=== PATIENT | female | born 1985 | race Asian ===

== ENCOUNTER 2016-09-20 12:48 | Emergency (ER) | payer OTHER ==
[~2016-09-20] VITALS: Wt 66.0 kg
[~2016-09-20 12:48] MED LIST: ACET500C5 PO; AZIT250T94 PO; IBUP400T22 PO; NP.1OP15 BOTH EYES; UDROBDM PO
--- NOTE | 2016-09-20 13:19 | ERD ---
ER Documentation Chief Complaint Date/Time DATE: 09/20/16 TIME: 13:18 Chief Complaint VAG BLEEDING X1 MONTH, NO PAIN REPORTED HPI 28-year-old female history of anemia, currently has had ParaGard for 8 months comes to emergency room with vaginal bleeding on and off for 6 weeks. She states that it varies from brown color to bright red blood, usually the bleeding has been on and off for about 2-3 days. Previously patient had the same IUD and had it for 5 years and was replaced 8 months ago. When it is brown colored blood she reports 1-2 pads per day, with bright red blood she reports up to 6 times a day. She reports a little bit of pelvic pressure, otherwise she does not report any severe pain, dizziness, chest pain. No reported fever or chills with this. ROS All systems reviewed and are negative except as per history of present illness. Medications Home Meds Active Scripts Ferrous Sulfate* (Ferrous Sulfate*) 325 Mg Tabec, 325 MG PO BID, #90 TAB Prov:JAVI TAY PA-C 09/20/16 Medroxyprogesterone Acetate* (Provera*) 2.5 Mg Tablet, 2.5 MG PO DAILY for 5 Days, TAB Prov:JAVI TAY PA-C 09/20/16 Naphazoline Hcl* (Naphcon*) 0.012% Ophth - 15 ML Drops, 2 DROP BOTH EYES QID for 7 Days, EA Prov:MARLEEN RAPP 12/04/15 Azithromycin* (Zithromax*) 250 Mg Tablet, 250 MG PO .ZPACK DIRECTED, #6 TAB 0 Refills TAKE 500 MG (2 TABS) THE FIRST DAY THEN 250 MG (1 TAB) DAYS 2-5 Prov:YOHANA ROSE PA-C 07/18/15 Ibuprofen* (Motrin*) 400 Mg Tab, 400 MG PO Q6, #30 TAB 0 Refills Prov:YOHANA ROSE PA-C 07/18/15 Acetaminophen* (Tylophen*) 500 Mg Capsule, 1 CAP PO Q6H Y for PAIN AND OR ELEVATED TEMP, #30 CAP 0 Refills Prov:YOHANA ROSE PA-C 07/18/15 Guaifenesin-Dextromethorphan* (Robitussin* DM) 100MG/10MG/5ML Syrup, 5 ML PO Q6H Y for COUGH, #120 ML 0 Refills Prov:YOHANA ROSE PA-C 07/18/15 Allergies Allergies: Coded Allergies: No Known Allergy (Unverified , 01/31/14) PMhx/Soc History of Surgery: Yes ( X2 ) Anesthesia Reaction: No Hx Neurological Disorder: No Hx Respiratory Disorders: No Hx Cardiac Disorders: No Hx Psychiatric Problems: No Hx Miscellaneous Medical Probl: Yes (Anemia.) Hx Alcohol Use: No Hx Substance Use: No Hx Tobacco Use: No Smoking Status: Never smoker Physical Exam Vitals Vital Signs Date Time Temp Pulse Resp B/P Pulse Ox O2 Delivery O2 Flow Rate FiO2 09/20/16 12:50 97.9 81 17 121/66 100 Physical Exam General: Well-developed, well-nourished. The patient appears in no acute distress. HEENT: Head is normocephalic, atraumatic. No scleral icterus. Neck: Supple. Nontender. Lungs: Clear to auscultation. Normal air movement. Heart: Regular rate and rhythm. S1 and S2 are normal. No murmurs, gallops, or rubs. Abdomen: Nondistended. Extremities: No clubbing or cyanosis. Moving extremities x 4. No weakness. Neurologic: Alert and oriented 3. No focal deficits. Normal speech and gait. Skin: Normal turgor. No rash or lesions. Result Diagram: 09/20/16 1345 Results 24 hrs Laboratory Tests Test 09/20/16 13:45 White Blood Count 6.810^3/ul Red Blood Count 4.6210^6/ul Hemoglobin 10.5g/dl Hematocrit 33.2% Mean Corpuscular Volume 71.9fl Mean Corpuscular Hemoglobin 22.7pg Mean Corpuscular Hemoglobin Concent 31.6g/dl Red Cell Distribution Width 15.8% Platelet Count 85205^3/UL Mean Platelet Volume 12.3fl Neutrophils % 60.6% Lymphocytes % 28.8% Monocytes % 5.3% Eosinophils % 4.6% Basophils % 0.6% Nucleated Red Blood Cells % 0.0/100WBC Neutrophils # 4.110^3/ul Lymphocytes # 2.010^3/ul Monocytes # 0.410^3/ul Eosinophils # 0.310^3/ul Basophils # 0.010^3/ul Nucleated Red Blood Cells # 0.010^3/ul PROCEDURE: US Pelvis. CLINICAL INDICATION: Metrorrhagia. TECHNIQUE: The pelvis was evaluated with transabdominal and transvaginal sonography in the axial and sagittal planes. COMPARISON: No prior study is available for comparison. FINDINGS: Uterus: 7.6 x 4.1 x 4.9 cm. Endometrium: 10.0 mm. An IUD is present in satisfactory position within the endometrial canal. Right ovary: 2.9 x 2.1 x 2.2 cm. Left ovary: 3.0 x 1.9 x 2.0 cm. Uterine masses: The uterus is heterogeneous and there is a fibroid measuring 1.2 x 1.5 x 1.3 cm anteriorly at the fundus. This may be pedunculated. Ovarian masses: None. Color Doppler and pulsed Doppler sonography demonstrate normal flow to the ovaries. Other pelvic masses: None. Free fluid: None. IMPRESSION: 1. IUD in satisfactory position. 2. Heterogeneous uterus. 3. Anterior fundal fibroid measuring 1.5 cm in maximal dimension which may be pedunculated. 4. Otherwise unremarkable study. RPTAT: QQ .Jag Deshpande MD, MD Date Time Electronically viewed and signed by .Jag Deshpande MD, on 09/20/2016 15:24 .R/ Procedures/MDM 31 yo female comes in with vaginal bleeding, patient has a ParaGard IUD in place also a pelvic ultrasound shows an a fibroid. Patient's intermittent vaginal bleeding may be due to the IUD, she had a CBC done that shows anemia, however no transfusion warranted at this time. She was given all results were copies, she will be given a short course of Provera, as well as iron for his symptoms. She was asked to follow-up with a instructor nurse within the next week for recheck to ensure her symptoms improved. At this time she remains hemodynamically stable, pelvic ultrasound does not show any evidence of gynecologic emergency, including ovarian torsion, or other masses. She feels comfortable with this plan and will be discharged home. Departure Diagnosis: Primary Impression: Vaginal bleeding Additional Impressions: Uterine fibroid Anemia Condition: Good JAVI TAY PA-C September 20, 2016 13:19
[2016-09-20 13:56] LABS: ADD SCAN DIFF NO
[2016-09-20 13:59] LABS: BASOPHILS % 0.6 % (0.0-2.0); EOSINOPHILS # 0.3 10^3/ul (0.0-0.5); EOSINOPHILS % 4.6 % (0.0-7.0); HEMATOCRIT 33.2 % (37.0-47.0); HEMOGLOBIN 10.5 g/dl (12.0-16.0); LYMPHOCYTES % 28.8 % (15.0-51.0); MEAN CORPUSCULAR HEMOGLOBIN 22.7 pg (29.0-33.0); MEAN CORPUSCULAR HGB CONC 31.6 g/dl (32.0-37.0); MEAN CORPUSCULAR VOLUME 71.9 fl (82.0-101.0); MEAN PLATELET VOLUME 12.3 fl (7.4-10.4); MONOCYTE # 0.4 10^3/ul (0.3-0.9); MONOCYTES % 5.3 % (0.0-11.0); NEUTROPHIL # 4.1 10^3/ul (1.6-7.5); NEUTROPHILS % 60.6 % (39.0-77.0); PLATELET COUNT 244 10^3/UL (140-415); RED BLOOD COUNT 4.62 10^6/ul (4.20-5.40); RED CELL DISTRIBUTION WIDTH 15.8 % (11.5-14.5); WHITE BLOOD COUNT 6.8 10^3/ul (4.8-10.8)
--- NOTE | 2016-09-20 15:25 | RADRPT ---
PROCEDURE: US Pelvis. CLINICAL INDICATION: Metrorrhagia. TECHNIQUE: The pelvis was evaluated with transabdominal and transvaginal sonography in the axial a nd sagittal planes. COMPARISON: No prior study is available for comparison. FINDINGS: Uterus: 7.6 x 4.1 x 4.9 cm. Endometrium: 10.0 mm. An IUD is present in satisfactory position within the endometrial canal. Right ovary: 2.9 x 2.1 x 2.2 cm. Left ovary: 3.0 x 1.9 x 2.0 cm. Uterine masses: The uterus is heterogeneous and there is a fibroid measuring 1.2 x 1.5 x 1.3 cm ante riorly at the fundus. This may be pedunculated. Ovarian masses: None. Color Doppler and pulsed Doppler sonography demonstrate normal flow to the ova diane. Other pelvic masses: None. Free fluid: None. IMPRESSION: 1. IUD in satisfactory position. 2. Heterogeneous uterus. 3. Anterior fundal fibroid measuring 1.5 cm in maximal dimension which may be pedunculated. 4. Otherwise unremarkable study. RPTAT: QQ .Jag Deshpande MD, Date Time Electronically viewed and signed by .Jag Deshpande MD, on 09/20/2016 15:24 .R/
[2016-09-20] MEDS ORDERED: FER325 PO (15:34)
[2016-09-20] MEDS ORDERED: MEDR2.5T PO (15:34)
[2016-09-20 16:01] VITALS: BP 124/72; PULSE 82; RESP 15; TEMP 97.9
== END 2016-09-20 16:02 | disposition home or self-care (01) ==
LOC: FTE 12:48
DX: N93.9 Abnormal uterine and vaginal bleeding, unspecified (principal); D25.9 Leiomyoma of uterus, unspecified; D64.9 Anemia, unspecified; R10.2 Pelvic and perineal pain
CPT/HCPCS: 36415; 76830; 76856; 85025; Z7502

== ENCOUNTER 2017-01-08 11:50 | Emergency (ER) | payer OTHER ==
[~2017-01-08] VITALS: Wt 66.5 kg
[~2017-01-08 11:50] MED LIST changes: +FER325 PO; +MEDR2.5T PO
[2017-01-08] MEDS ORDERED: FLUORESCEIN STRIP RIGHT EYE ONE (13:30)
[2017-01-08] MEDS ORDERED: TETRACAINE 0.5% 4 ML OPH RIGHT EYE ONE (13:30)
--- NOTE | 2017-01-08 13:34 | ERD ---
ER Documentation Chief Complaint Date/Time DATE: 01/08/17 TIME: 13:29 Chief Complaint RIGHT EYE PAIN/REDNESS, ONSET 1 DAY HPI 31-year-old female who presents emergency department for right eye redness/pain since last night. Patient stated that she killed a cockroach last night using a slipper or shoe then a particle stuck her left eye. Denies headache, dizziness, blurry vision, changes in vision, neck pain, throat pain, difficulty swallowing, shoulder pain, chest pain, back pain, abdominal pain, nausea, vomiting, constipation, diarrhea, urinary symptoms, , possibility of being , recent travel, recent exposure to any illness, recent antibiotic use in the last 3 months, fever, chills. No known drug allergies. Past medical history of anemia, allergic rhinitis. Surgical history of 2. Medication: Ferrous sulfate. Bactrim. Loratadine. Nasal spray. Social: Not working at this time. Denies smoking, use of alcohol, use of illegal drugs. LMP was December 20, 2016. A0. Physical examination revealed that patient has conjunctival injection. Has no pain on eye movement. No visual field loss. ROS All systems reviewed and are negative except as per history of present illness. Medications Home Meds Active Scripts Erythromycin (Erythromycin Opth) 3.5 Gm Oint..gm., 1 APPLIC RIGHT EYE QID for 7 Days, #1 Prov:JUAN DAVIDSON 01/08/17 Loratadine* (Loratadine*) 10 Mg Tablet, 10 MG PO DAILY, #30 TAB Prov:SACHILLUVIANAZHEATHER Smith 01/08/17 Ferrous Sulfate* (Ferrous Sulfate*) 325 Mg Tabec, 325 MG PO BID, #90 TAB Prov:JAVI TAY PA-C 09/20/16 Medroxyprogesterone Acetate* (Provera*) 2.5 Mg Tablet, 2.5 MG PO DAILY for 5 Days, TAB Prov:JAVI TAY PA-C 09/20/16 Naphazoline Hcl* (Naphcon*) 0.012% Ophth - 15 ML Drops, 2 DROP BOTH EYES QID for 7 Days, EA Prov:MARLEEN RAPP 12/04/15 Azithromycin* (Zithromax*) 250 Mg Tablet, 250 MG PO .PHILIPP DIRECTED, #6 TAB 0 Refills TAKE 500 MG (2 TABS) THE FIRST DAY THEN 250 MG (1 TAB) DAYS 2-5 Prov:YOHNAA ROSE DILLON 07/18/15 Ibuprofen* (Motrin*) 400 Mg Tab, 400 MG PO Q6, #30 TAB 0 Refills Prov:YOHANA ROSE DILLON 07/18/15 Acetaminophen* (Tylophen*) 500 Mg Capsule, 1 CAP PO Q6H Y for PAIN AND OR ELEVATED TEMP, #30 CAP 0 Refills Prov:YOHANA ROSE DILLON 07/18/15 Guaifenesin-Dextromethorphan* (Robitussin* DM) 100MG/10MG/5ML Syrup, 5 ML PO Q6H Y for COUGH, #120 ML 0 Refills Prov:YOHANA ROSE DILLON 07/18/15 Allergies Allergies: Coded Allergies: No Known Allergy (Unverified , 01/31/14) PMhx/Soc History of Surgery: Yes ( X2 ) Anesthesia Reaction: No Hx Neurological Disorder: No Hx Respiratory Disorders: No Hx Cardiac Disorders: No Hx Psychiatric Problems: No Hx Miscellaneous Medical Probl: Yes (Anemia.) Hx Alcohol Use: No Hx Substance Use: No Hx Tobacco Use: No Smoking Status: Never smoker Physical Exam Vitals Vital Signs Date Time Temp Pulse Resp B/P Pulse Ox O2 Delivery O2 Flow Rate FiO2 01/08/17 11:52 98.4 89 17 133/69 98 Physical Exam Const: [] Head: Atraumatic Eyes: Left eye: Pupil reactive to light and accommodation. No pain in eye movement. No signs of trauma. Right eye: Pupils reactive to light and accommodation. Has conjunctival erythema. No pain in eye movement. No signs of orbital or periorbital cellulitis. No visual field loss bilaterally. ENT: Normal External Ears, Nose and Mouth. Neck: Full range of motion..~ No meningismus. Resp: Clear to auscultation bilaterally Cardio: Regular rate and rhythm, no murmurs Abd: Soft, non tender, non distended. Normal bowel sounds Skin: No petechiae or rashes Back: No midline or flank tenderness Ext: No cyanosis, or edema Neur: Awake and alert Psych: Normal Mood and Affect Results 24 hrs Current Medications Medications (Trade) Dose Ordered Sig/Stephen Route PRN Reason Start Time Stop Time Status Last Admin Dose Admin Tetracaine HCl (Tetracaine 0.5% Steri-Unit Clarisse) 1 drop ONCE ONCE RIGHT EYE 01/08/17 13:30 01/08/17 13:32 DC Fluorescein Sodium (Dkppp-C-Eoidw) 1 strip ONCE ONCE RIGHT EYE 01/08/17 13:30 01/08/17 13:32 DC Procedures/MDM Examination: Please see physical examination. Disease process, medical treatment was explained to the patient and family member. They verbalized understanding and agreed with the diagnostic tests, medical treatment, and follow-up care. ED visual acuity: Reviewed. Fluorescein staining: No evidence of foreign body. No uptake. Re-evaluation: Extraocular movement of her eyes within normal limits. No pain in eye movement. No visual field loss.Observed reading and using cell phone without difficulty. Stated she appears comfortable to go home and will follow up with an control system manager in the next 24-48 hours. Consultation: None. Differential diagnosis: globe rupture versus angle-closure glaucoma versus subconjunctival hemorrhage versus conjunctivitis versus periorbital cellulitis versus orbital cellulitis bacterial conjunctivitis versus allergic conjunctivitis versus foreign body to eye versus eye trauma Medical decision makin-year-old female who presents emergency department for right eye redness/pain since last night. Patient stated that she killed a cockroach last night using a slipper or shoe then a particle stuck her right eye. Patient's complaint, patient history about her complaint, my physical findings, my reevaluation are consistent my final diagnosis of right eye conjunctivitis secondary to eye injury. Medications prescribed are the following: Erythromycin antibiotic ointment. Patient and family member are made aware of the side effects and adverse reactions of the medications prescribed. Instructed on when to seek emergent and medical attention in case allergic/anaphylactic reactions or severe side effects and or adverse reactions to medications. Patient and family member verbalized understanding. Patient instructed Instructed to follow-up with his PCP in 24-48 hours. PCP to refer patient to control system manager in the next 24-48 hours. Instructed to Call 911 for chest pain, shortness of breath. Advised to come back here in ED as soon as possible for severity of symptoms which includes but not limited to: any new symptoms; shortness of breath/difficulty of breathing; cardiovascular changes; severe gastrointestinal symptoms; signs and symptoms of bleeding and or infection; signs of compartment syndrome/neurovascular changes; neurological changes/deficits. Patient and family member verbalized understanding. Upon discharge, patient is alert and oriented x 4, speaks full and clear sentences, denies pain, has no neurological deficits, has no neurovascular deficits, difficulty of breathing. Breathing even and unlabored. Lung sounds are clear to auscultation. Not in distress. Appears comfortable. Ambulatory with steady gait. Appears satisfied with care provided here in ED. Departure Diagnosis: Primary Impression: Eye injury Additional Impression: Conjunctivitis Condition: Stable Additional Instructions: Instructed to follow-up with his PCP in 24-48 hours. PCP to refer patient to control system manager in the next 24-48 hours. Instructed to Call 911 for chest pain, shortness of breath. Advised to come back here in ED as soon as possible for severity of symptoms which includes but not limited to: any new symptoms; shortness of breath/difficulty of breathing; cardiovascular changes; severe gastrointestinal symptoms; signs and symptoms of bleeding and or infection; signs of compartment syndrome/neurovascular changes; neurological changes/deficits. Patient and family member verbalized understanding. JUAN DAVIDSON Jan 08, 2017 13:34
[2017-01-08] MEDS ORDERED: LORA10TA3 PO (14:18)
[2017-01-08] MEDS ORDERED: ERYT1OIN6 RIGHT EYE (14:20)
== END 2017-01-08 15:19 | disposition home or self-care (01) ==
LOC: FTE 11:50
DX: S05.91XA Unspecified injury of right eye and orbit, initial encounter (principal); H10.9 Unspecified conjunctivitis; X58.XXXA Exposure to other specified factors, initial encounter; Y92.9 Unspecified place or not applicable
CPT/HCPCS: Z7502; Z7610; 99283

== ENCOUNTER 2018-08-07 10:34 | Emergency (ER) | payer OTHER ==
[~2018-08-07] VITALS: Ht 157.5 cm; Wt 68.0 kg
[~2018-08-07 10:34] MED LIST changes: +AZIT250T PO; -AZIT250T94 PO; +ERYT1OIN6 RIGHT EYE; +GUAI5SYR2 PO; +IBUP-1561 PO; -IBUP400T22 PO; +LORA10TA3 PO; -UDROBDM PO
[2018-08-07 10:47] VITALS: BP 136/77; PULSE 85; RESP 18; Ht 157.5 cm; Wt 68.0 kg
[2018-08-07] MEDS ORDERED: AZIT250T PO (12:06)
[2018-08-07] MEDS ORDERED: D-ME473S2 PO (12:06)
[2018-08-07] MEDS ORDERED: PRED20TA PO (12:06)
--- NOTE | 2018-08-07 12:13 | ERD ---
ER Documentation Chief Complaint Chief Complaint pt is bib self with c/o cough and sore throat for a few wks,on allergy meds HPI 33-year-old female presents with loss of voice for the last week. She has cough for 2 weeks. She states it is productive yellow sputum. She denies fevers. She has a history of asthma and is using her albuterol inhaler and she takes Zyrtec as well. ROS All systems reviewed and are negative except as per history of present illness. Medications Home Meds Active Scripts Dextromethorphan Hb-Promethazine Hcl* (Promethazine DM* Syrup) 473 Ml Syrup, 5 ML PO Q6 PRN for COUGH for 5 Days, ML Prov:MAYRA GOMEZ MD 08/07/18 Azithromycin* (Zithromax*) 250 Mg Tablet, 250 MG PO .ZPACK DIRECTED, #6 TAB TAKE 500 MG (2 TABS) THE FIRST DAY THEN 250 MG (1 TAB) DAYS 2-5 Prov:MAYRA GOMEZ MD 08/07/18 Prednisone* (Prednisone*) 20 Mg Tab, 40 MG PO DAILY for 5 Days, TAB Prov:MAYRA GOMEZ MD 08/07/18 Erythromycin (Erythromycin Opth) 3.5 Gm Oint..gm., 1 APPLIC RIGHT EYE QID for 7 Days, #1 Prov:JUAN DAVIDSON 01/08/17 Loratadine* (Loratadine*) 10 Mg Tablet, 10 MG PO DAILY, #30 TAB Prov:JUAN DAVIDSON 01/08/17 Ferrous Sulfate* (Ferrous Sulfate*) 325 Mg Tabec, 325 MG PO BID, #90 TAB Prov:JAVI TAY PA-C 09/20/16 Medroxyprogesterone Acetate* (Provera*) 2.5 Mg Tablet, 2.5 MG PO DAILY for 5 Days, TAB Prov:JAVI TAY PA-C 09/20/16 Naphazoline Hcl* (Naphcon*) 0.012% Ophth - 15 ML Drops, 2 DROP BOTH EYES QID for 7 Days, EA Prov:MARLEEN RAPP 12/04/15 Azithromycin* (Zithromax*) 250 Mg Tablet, 250 MG PO .ZPACK DIRECTED, #6 TAB 0 Refills TAKE 500 MG (2 TABS) THE FIRST DAY THEN 250 MG (1 TAB) DAYS 2-5 Prov:YOHANA ROSE DILLON 07/18/15 Ibuprofen* (Motrin*) 400 Mg Tab, 400 MG PO Q6, #30 TAB 0 Refills Prov:YOHANA ROSE DILLON 07/18/15 Acetaminophen* (Tylophen*) 500 Mg Capsule, 1 CAP PO Q6H PRN for PAIN AND OR ELEVATED TEMP, #30 CAP 0 Refills Prov:YOHANA ROSE DILLON 07/18/15 Guaifenesin-Dextromethorphan* (Robitussin* DM) 100MG/10MG/5ML Syrup, 5 ML PO Q6H PRN for COUGH, #120 ML 0 Refills Prov:YOHANA ROSE DILLON 07/18/15 Allergies Allergies: Coded Allergies: No Known Allergy (Unverified , 01/31/14) PMhx/Soc History of Surgery: Yes ( X2 ) Anesthesia Reaction: No Hx Neurological Disorder: No Hx Respiratory Disorders: No Hx Cardiac Disorders: No Hx Psychiatric Problems: No Hx Miscellaneous Medical Probl: Yes (Anemia.) Hx Alcohol Use: No Hx Substance Use: No Hx Tobacco Use: No Physical Exam Vitals Vital Signs Date Temp Pulse Resp B/P (MAP) Pulse Ox O2 O2 Flow FiO2 Time Delivery Rate 08/07/18 98.3 85 18 136/77 98 10:47 (96) Physical Exam Const: No acute distress Head: Atraumatic Eyes: Normal Conjunctiva ENT: Normal External Ears, Nose and Mouth. TMs and oropharynx normal. Loss of voice. Neck: Full range of motion. No meningismus. Resp: Clear to auscultation bilaterally. Mild forced wheeze without rales, significant wheezing at rest or retractions. Cardio: Regular rate and rhythm, no murmurs Abd: Soft, non tender, non distended. Normal bowel sounds Skin: No petechiae or rashes Back: No midline or flank tenderness Ext: No cyanosis, or edema Neur: Awake and alert Psych: Normal Mood and Affect Procedures/MDM Presents with productive cough for the last 2 weeks with a history of asthma. She has signs of pharyngitis as well. She has no signs of abscess or airway obstruction, chest pain, signs of pneumonia, hypoxemia, respiratory distress. Given duration will treat empirically with a short course prednisone, Zithromax, continuation of albuterol, promethazine DM, primary care follow-up and return precautions. The patient was stable with no new complaints during the ER course. Clinically, there is no current evidence to suggest meningitis, sepsis, acute abdomen, pneumonia, stroke, acute coronary syndrome, pulmonary embolism, aortic dissection or any other emergent condition appearing to require further evaluation or hospitalization. Patient counseled regarding my diagnostic impression and care plan. Prior to discharge all questions answered. Pt agrees with treatment plan and understands strict return precautions. Pt is instructed to follow up with primary care provider within 24-48 hours. Precautionary instructions provided including instructions to return to the ER if not improving or for any worsening or changing symptoms or concerns. Departure Diagnosis: Primary Impression: Sore throat Additional Impression: Upper respiratory infection URI type: unspecified URI Qualified Codes: J06.9 - Acute upper respiratory infection, unspecified Condition: Stable Patient Instructions: Bronchitis With Wheezing (Adult), Laryngitis Additional Instructions: Recheck for new or worsening symptoms with primary care doctor. MAYRA GOMEZ MD Aug 07, 2018 12:13
== END 2018-08-07 13:28 | disposition home or self-care (01) ==
LOC: FTE 10:34
DX: J06.9 Acute upper respiratory infection, unspecified (principal)
CPT/HCPCS: 99283

== ENCOUNTER 2018-08-12 19:15 | Emergency (ER) | payer OTHER ==
[~2018-08-12] VITALS: Ht 157.5 cm; Wt 66.4 kg
[~2018-08-12 19:15] MED LIST changes: +D-ME473S2 PO; +PRED20TA PO
[2018-08-12 19:22] VITALS: BP 144/81; PULSE 84; RESP 20; Ht 157.5 cm; Wt 66.4 kg
[2018-08-12] MEDS ORDERED: IBUP800T48 PO (21:19)
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
== END 2018-08-12 21:20 | disposition home or self-care (01) ==
LOC: FTE 19:15
DX: S09.90XA Unspecified injury of head, initial encounter (principal); S49.92XA Unspecified injury of left shoulder and upper arm, initial encounter; V43.52XA Car driver injured in collision with other type car in traffic accident, initial encounter
CPT/HCPCS: 99283